=== PATIENT | male | born 1940 | race Asian ===

== ENCOUNTER 2017-07-13 14:36 | Emergency (ER) | payer MEDICARE, MEDICAID ==
[~2017-07-13] VITALS: Ht 182.9 cm; Wt 83.9 kg
[~2017-07-13 14:36] MED LIST: ATEN50TA80; DICL-164; LOVA20TA4
[2017-07-13 14:58] VITALS: BP 154/77
[2017-07-13] MEDS ORDERED: methylPREDNISolone SOD SUCC 125 MG/2 ML VL ONE (15:24)
[2017-07-13] MEDS ORDERED: methylPREDNISolone SOD SUCC 125 MG/2 ML VL IM ONE (15:30)
== END 2017-07-13 15:50 | disposition home or self-care (01) ==
LOC: ER 14:46
DX: T78.40XA Allergy, unspecified, initial encounter (principal); E78.5 Hyperlipidemia, unspecified; I10 Essential (primary) hypertension; X58.XXXA Exposure to other specified factors, initial encounter
CPT/HCPCS: 96372; 99283; J2930